=== PATIENT | female | born 1970 | race Caucasian/White ===

== ENCOUNTER 2018-02-16 05:39 | Inpatient (IN) | payer OTHER ==
[~2018-02-16] VITALS: Ht 172.7 cm; Wt 132.0 kg
[2018-02-16] MEDS ORDERED: LACTATED RINGERS 1,000 ML IV SCH (06:49)
[2018-02-16] MEDS ORDERED: PROPOFOL 10 MG/ML, 20ML ONE ×2 (06:52)
[2018-02-16] MEDS ORDERED: ROPI0.2537 PO (06:52)
[2018-02-16] MEDS ORDERED: LIDOCAINE-MPF 2% ,5ML ONE (06:52)
[2018-02-16] MEDS ORDERED: OXYC-307 PO (06:52)
[2018-02-16] MEDS ORDERED: CYCL-259 PO (06:52)
[2018-02-16 06:53] LABS: HCG UR SG 1.017 (1.003-1.030)
[2018-02-16] MEDS ORDERED: ROCURONIUM 10MG/ML,5ML ONE ×2 (06:53→08:13)
[2018-02-16] MEDS ORDERED: BUPIVACAINE/PF 0.5% ONE (06:55)
[2018-02-16] MEDS ORDERED: methylPREDNISolone SOD SUCC 125 MG/2 ML ONE (06:55)
[2018-02-16] MEDS ORDERED: BACITRACIN 50,000 UNIT ONE (06:56)
[2018-02-16] MEDS ORDERED: THROMBIN 5,000 UNIT VIAL TP ONE (06:56)
[2018-02-16] MEDS ORDERED: EPINEPHRINE 1 MG/ML, 1ML ONE (06:56)
[2018-02-16 07:00] VITALS: BP 135/94
[2018-02-16] MEDS ORDERED: LIDOCAINE-MPF 1%, 2ML INFIL ONE (07:00)
[2018-02-16] MEDS ORDERED: REMIFENTANIL 2 MG ONE (07:09)
[2018-02-16] MEDS ORDERED: FENTANYL PF 100 MCG/2ML ONE ×4 (07:09→10:34)
[2018-02-16] MEDS ORDERED: SODIUM CHLORIDE 0.9% PF 10ML ONE ×4 (07:13)
[2018-02-16] MEDS ORDERED: HYDROcodone/APAP 7.5-325MG/15ML UDC PO PRN (07:30)
[2018-02-16] MEDS ORDERED: MEPERIDINE/PF 25MG/0.5ML IVPush PRN (07:30)
[2018-02-16] MEDS ORDERED: OXYcodone 5 MG/5 ML ORAL.SOL UDC PO PRN (07:30)
[2018-02-16] MEDS ORDERED: ACETAMINOPHEN 325 MG TABLET PO PRN (07:30)
[2018-02-16] MEDS ORDERED: HYDROmorphone 1 MG/ML, 1ML IV PRN (07:30)
[2018-02-16] MEDS ORDERED: ONDANSETRON 2MG/ML, 2ML IVPush PRN ×2 (07:30→10:00)
[2018-02-16] MEDS ORDERED: CEFAZOLIN 1,000 MG ONE ×2 (07:58)
[2018-02-16] MEDS ORDERED: ONDANSETRON 2MG/ML, 2ML ONE (08:36)
[2018-02-16] MEDS ORDERED: DEXAMETHASONE 4 MG/ML, 1ML ONE ×2 (08:36)
[2018-02-16] MEDS ORDERED: NEOSTIGMINE 1 MG/ML, 10ML ONE (08:48)
[2018-02-16] MEDS ORDERED: GLYCOPYRROLATE 0.2MG/1ML, 5ML ONE (08:48)
[2018-02-16] MEDS ORDERED: PHENYLEPHRINE 10 MG/ML ONE (08:50)
[2018-02-16] MEDS ORDERED: ACETAMINOPHEN 650 MG/20.3 ML UDC ONE (09:52)
[2018-02-16] MEDS ORDERED: OXYcodone 5 MG/5 ML ORAL.SOL UDC ONE (09:53)
[2018-02-16] MEDS: FENTANYL PF 100 MCG/2ML IV PRN ×5 (09:54→10:46)
[2018-02-16] MEDS ORDERED: PROMETHAZINE 25 MG/ML, 1ML IM PRN (10:00)
[2018-02-16] MEDS ORDERED: HYDROmorphone 2MG TABLET PO PRN (10:00)
[2018-02-16] MEDS ORDERED: ROPINIROLE 0.25MG TABLET PO PRN (10:00)
[2018-02-16] MEDS ORDERED: DIAZEPAM 5 MG/ML, 2ML IVPush PRN (10:00)
[2018-02-16] MEDS ORDERED: PHARMACY MAY ADJ FOR RENAL FX MC PRN (10:00)
[2018-02-16] MEDS ORDERED: MAGNESIUM HYDROXIDE 8%, 30ML UDC PO PRN (10:00)
[2018-02-16] MEDS ORDERED: HYDROcodone/APAP 5/325 TABLET PO PRN (10:00)
[2018-02-16] MEDS ORDERED: morphine SULFATE 10 MG/ML, 1ML IVPush PRN (10:00)
[2018-02-16] MEDS ORDERED: SENNA/DOCUSATE TABLET PO PRN (10:00)
[2018-02-16] MEDS ORDERED: DIPHENHYDRAMINE 50 MG CAPSULE PO PRN (10:00)
[2018-02-16] MEDS ORDERED: MEPERIDINE/PF 50 MG/ML ONE (10:01)
[2018-02-16] MEDS ORDERED: DIPHENHYDRAMINE 50 MG/ML, 1ML ONE (10:07)
[2018-02-16] MEDS ORDERED: DIPHENHYDRAMINE 50 MG/ML, 1ML IVPush ONE ×2 (10:30→11:30)
[2018-02-16] MEDS: CYCLOBENZAPRINE 10 MG TABLET PO PRN ×2 (11:38→19:50)
[2018-02-16] MEDS: OXYcodone/APAP 10/325MG TABLET PO PRN ×3 (11:38→21:12)
[2018-02-16] MEDS: NS + 20MEQ KCL 1,000 ML IV SCH (15:56)
[2018-02-16] MEDS: CEFAZOLIN PMX 1GM/50ML 50 ML IVPB SCH (15:56)
[2018-02-16 16:16] VITALS: BP 127/73
[2018-02-16] MEDS ORDERED: METHOCARBAMOL 750 MG TABLET PO PRN (18:00)
[2018-02-16 20:00] VITALS: BP 151/86
[2018-02-16] MEDS: SODIUM CHLORIDE FLUSH 10ML SYR IVF SCH (21:12)
[2018-02-17 00:25] VITALS: BP 96/63
[2018-02-17] MEDS: CEFAZOLIN PMX 1GM/50ML 50 ML IVPB SCH (00:35)
[2018-02-17] MEDS: OXYcodone/APAP 10/325MG TABLET PO PRN ×3 (01:10→09:18)
[2018-02-17 03:27] VITALS: BP 105/66
[2018-02-17] MEDS: CYCLOBENZAPRINE 10 MG TABLET PO PRN (05:13)
[2018-02-17] MEDS: NS + 20MEQ KCL 1,000 ML IV SCH (05:14)
[2018-02-17] MEDS: SODIUM CHLORIDE FLUSH 10ML SYR IVF SCH (08:07)
[2018-02-17 08:14] VITALS: BP 105/48
[2018-02-17 09:29] VITALS: BP 111/77
[2018-02-17] MEDS ORDERED: METH750T87 PO (10:40)
== END 2018-02-17 10:46 | disposition home or self-care (01) | DRG 516 ==
LOC: OUT 05:39 → 4NOR 11:07 → OUT 23:26 → DCLOUNGE 02-17 10:35
PROVIDERS: ADMIT Neurological Surgery; ATTEND Neurological Surgery
PROC: 01NB0ZZ Release Lumbar Nerve, Open Approach (ICD-10-PCS; principal; 2018-02-16 07:30)
DX: M48.061 Spinal stenosis, lumbar region without neurogenic claudication (principal); Z68.41 Body mass index [BMI] 40.0-44.9, adult; E66.01 Morbid (severe) obesity due to excess calories; Z91.040 Latex allergy status; Z88.5 Allergy status to narcotic agent; Z88.0 Allergy status to penicillin; Z88.8 Allergy status to other drugs, medicaments and biological substances; Z91.09 Other allergy status, other than to drugs and biological substances
CPT/HCPCS: 72100; 81025; J0171; J0690; J1100; J2175; J2405; J2704; J2710; J3010; J3360; J3480; J3490; J1200; J2370; J2930; J7120